=== PATIENT | male | born 1970 | race Caucasian/White ===

== ENCOUNTER 2023-04-14 08:58 | Emergency (ER) | payer OTHER ==
[2023-04-14] MEDS ORDERED: Boostrix 0.5 ML (Tdap) VIAL (>/=7 yrs of age) ONE (09:45)
[2023-04-14] MEDS ORDERED: Lidocaine 1% w/Epinephrine 1:200K 30 ML VIAL ONE (09:45)
== END 2023-04-14 10:56 | disposition home or self-care (01) ==
LOC: CSHERS 08:58
DX: S51.811A Laceration without foreign body of right forearm, initial encounter (principal); V44.5XXA Car driver injured in collision with heavy transport vehicle or bus in traffic accident, initial encounter
CPT/HCPCS: 12001; 90471; 90715

== ENCOUNTER 2023-04-14 11:02 | Emergency (ER) | payer OTHER | END 2023-04-14 12:30 | disposition home or self-care (01) | LOC: CSHERS 11:02 | DX: S51.811A Laceration without foreign body of right forearm, initial encounter (principal); S83.92XA Sprain of unspecified site of left knee, initial encounter; T14.8XXA Other injury of unspecified body region, initial encounter; V44.5XXA Car driver injured in collision with heavy transport vehicle or bus in traffic accident, initial encounter ==